=== PATIENT | male | born 1965 | race African-American/Black ===

== ENCOUNTER 2017-05-11 08:37 | Inpatient (IN) | payer OTHER, MEDICAID ==
[2017-05-11] VITALS (7 sets, daily range): BP systolic 105–118; BP diastolic 59–81
[~2017-05-11] VITALS: Ht 188 cm; Wt 68.5 kg
[2017-05-11] MEDS ORDERED: SODIUM CHLORIDE 0.9% 1,000 ML IV ONE (08:42)
[2017-05-11] MEDS ORDERED: METHYLPREDNISOLONE SOD SUCC 125 MG/2 ML VIAL IV STA (08:42)
[2017-05-11] MEDS ORDERED: IPRATROPIUM/ALBUTEROL 0.5-3(2.5)MG/3ML NEB HHN ONE (08:45)
[2017-05-11] MEDS ORDERED: ALBUTEROL (0.083%) 2.5MG/3ML NEB ONE (08:53)
[2017-05-11] MEDS ORDERED: IPRATROPIUM BROMIDE (0.02%) 0.5MG/2.5ML NEB ONE (08:53)
[2017-05-11 09:19] LABS: BASOPHILS % 0.9 % (0.0-2.0); HEMATOCRIT. 42.2 % (42.0-52.0); HEMOGLOBIN. 13.7 g/dL (14.0-18.0); MEAN CORPUSCULAR HEMOGLOBIN 29.9 pg (28.0-32.0); MEAN PLATELET VOLUME 7.1 fl (7.4-10.4); MONOCYTES % 5.6 % (2.0-8.0); NEUTROPHILS % 31.5 % (40.0-76.0); PLATELET 241 x1000/uL (130-400); RED BLOOD CELL COUNT 4.58 mill/uL (4.7-6.1); RED CELL DISTRIBUTION WIDTH 15.8 % (11.6-14.6)
[2017-05-11 09:25] LABS: INR 1.1; PARTIAL THROMBOPLASTIN TIME 26.9 sec (23.4-31.0)
[2017-05-11 09:32] LABS: CARBON DIOXIDE 26 mEq/L (21-32); CHLORIDE 106 mEq/L (98-107); TROPONIN I < 0.02 ng/mL (0.00-0.04)
[2017-05-11 10:49] LABS: BG BASE EXCESS -2.2 mmol/L (-2.0-2.0); BG BILEVEL POS AIRWAY PRESSURE 15/5; BG CARBOXYHEMOGLOBIN 0.6 % (0.5-1.5); BG DEOXYHEMOGLOBIN 0.3 % (0.0-5.0); BG HCO3 ACT 24.9 mmol/L (22.0-26.0); BG METHEMOGLOBIN 0.4 % (0.0-1.5); BG OXYGEN SATURATION 99.7 % (92.0-98.5); BG OXYHEMOGLOBIN 98.7 % (94.0-97.0); BG PCO2 52.1 mmHg (35.0-45.0); BG PH 7.297 (7.350-7.450); BG PO2 497.5 mmHg (75.0-100.0); BG SAMPLE SITE RIGHT BRACHIAL; BG TOTAL HEMOGLOBIN 13.8 g/dL (12.0-18.0); BG VENT MODE MASK - BIPAP; BG VENT RATE 20 set
[2017-05-11] MEDS: IPRATROPIUM/ALBUTEROL 0.5-3(2.5)MG/3ML NEB HHN SCH ×2 (15:50→21:58)
[2017-05-11] MEDS: DEXT 5%/0.45% NACL 1000ML 1,000 ML IV SCH (15:50)
[2017-05-11] MEDS: BUDESONIDE 0.5MG/2ML NEB HHN SCH (15:50)
[2017-05-11] MEDS: METHYLPREDNISOLONE SOD SUCC 40 MG/ML VIAL IV SCH (16:19)
[2017-05-11] MEDS: PANTOPRAZOLE SODIUM 40 MG/VIAL IV SCH (16:19)
[2017-05-11 16:35] LABS: BG BASE EXCESS -2.6 mmol/L (-2.0-2.0); BG CARBOXYHEMOGLOBIN 0.4 % (0.5-1.5); BG DEOXYHEMOGLOBIN 2.1 % (0.0-5.0); BG HCO3 ACT 22.8 mmol/L (22.0-26.0); BG METHEMOGLOBIN 0.4 % (0.0-1.5); BG OXYGEN SATURATION 97.9 % (92.0-98.5); BG OXYHEMOGLOBIN 97.1 % (94.0-97.0); BG PCO2 41.6 mmHg (35.0-45.0); BG PH 7.357 (7.350-7.450); BG SAMPLE SITE RIGHT BRACHIAL; BG TOTAL HEMOGLOBIN 13.8 g/dL (12.0-18.0); BG VENT MODE NASAL CANNULA
[2017-05-11] MEDS ORDERED: NA PHOS,M-B/NA PHOS,DI-BA ENEMA 118ML PR PRN (19:00)
[2017-05-11] MEDS ORDERED: ACETAMINOPHEN 325MG TABLET PO PRN (19:00)
[2017-05-11] MEDS ORDERED: GUAIFENESIN 200MG/10ML SUGAR FREE UDC PO PRN (19:00)
[2017-05-11] MEDS ORDERED: IPRATROPIUM/ALBUTEROL 0.5-3(2.5)MG/3ML NEB INH PRN (19:00)
[2017-05-11] MEDS ORDERED: ONDANSETRON HCL 4MG/2ML VIAL IV PRN (19:00)
[2017-05-11] MEDS ORDERED: CLONIDINE 0.1MG TABLET PO PRN (19:00)
[2017-05-11] MEDS ORDERED: DOCUSATE SODIUM 100MG CAPSULE PO PRN (19:00)
[2017-05-11] MEDS ORDERED: ACETAMINOPHEN 650MG/20.3ML UDC GT PRN (19:00)
[2017-05-11] MEDS ORDERED: MAGNESIUM/ALUMINUM HYDROXIDE/SIMETHICONE 30ML UDC PO PRN (19:00)
[2017-05-11] MEDS ORDERED: DIPHENHYDRAMINE 50MG/ML VIAL IV PRN (19:00)
[2017-05-11] MEDS ORDERED: ACETAMINOPHEN 650MG SUPP PR PRN (19:00)
[2017-05-11] MEDS ORDERED: LORAZEPAM 0.5MG TABLET PO PRN (19:00)
[2017-05-11] MEDS: ENOXAPARIN 40MG/0.4ML SYR SUBCUT SCH (20:00)
[2017-05-11 20:43] LABS: CLARITY URINE CLEAR (CLEAR); COLOR URINE YELLOW (YELLOW); GLUCOSE URINE 3+ (NEGATIVE); KETONES URINE NEGATIVE (NEGATIVE); LEUKOCYTE ESTERASE URINE NEGATIVE (NEGATIVE); NITRITE URINE NEGATIVE (NEGATIVE); OCCULT BLOOD URINE TRACE (NEGATIVE); PROTEIN URINE TRACE (NEGATIVE); SPECIFIC GRAVITY URINE 1.022 (1.005-1.030); UROBILINOGEN URINE 0.2 E.U./dL (0.2-1.0)
[2017-05-11] MEDS: SODIUM CHLORIDE 0.9% INJ 3ML FLUSH IVF SCH (20:49)
[2017-05-11 20:54] LABS: *AMPHETAMINES SCREEN URINE NEGATIVE (NEGATIVE); *BARBITURATES SCREEN URINE NEGATIVE (NEGATIVE); *BENZODIAZEPINES SCREEN URINE NEGATIVE (NEGATIVE); *COCAINE SCREEN URINE NEGATIVE (NEGATIVE); CANNABINOID URINE SCREEN NEGATIVE (NEGATIVE); METHADONE URINE SCREEN NEGATIVE (NEGATIVE); OPIATES URINE SCREEN NEGATIVE (NEGATIVE); PHENCYCLIDINE URINE SCREEN NEGATIVE (NEGATIVE)
[2017-05-12] VITALS (24 sets, daily range): BP systolic 54–115; BP diastolic 32–75
[2017-05-12] MEDS: IPRATROPIUM/ALBUTEROL 0.5-3(2.5)MG/3ML NEB HHN SCH ×6 (00:18→20:13)
[2017-05-12] MEDS: BUDESONIDE 0.5MG/2ML NEB HHN SCH ×3 (00:18→20:13)
[2017-05-12] MEDS: METHYLPREDNISOLONE SOD SUCC 40 MG/ML VIAL IV SCH ×3 (00:35→15:51)
[2017-05-12] MEDS: DEXT 5%/0.45% NACL 1000ML 1,000 ML IV SCH (01:45)
[2017-05-12] MEDS: SODIUM CHLORIDE 0.9% INJ 3ML FLUSH IVF SCH ×3 (05:15→21:34)
[2017-05-12 06:27] LABS: HEMATOCRIT. 37.4 % (42.0-52.0); HEMOGLOBIN. 12.4 g/dL (14.0-18.0); LYMPHOCYTES % 12.3 % (20.0-50.0); MEAN CORPUSCULAR HEMOGLOBIN 29.9 pg (28.0-32.0); MONOCYTES % 1.2 % (2.0-8.0); NEUTROPHILS % 86.5 % (40.0-76.0); PLATELET 214 x1000/uL (130-400); RED BLOOD CELL COUNT 4.15 mill/uL (4.7-6.1); RED CELL DISTRIBUTION WIDTH 15.2 % (11.6-14.6)
[2017-05-12 06:34] LABS: PARTIAL THROMBOPLASTIN TIME 26.8 sec (23.4-31.0); PROTHROMBIN TIME 10.5 sec (9.4-11.6)
[2017-05-12 07:09] LABS: CARBON DIOXIDE 23 mEq/L (21-32); CHLORIDE 103 mEq/L (98-107)
[2017-05-12 07:14] LABS: HDL CHOLESTEROL 65 mg/dL (40-59); LDL CHOLESTEROL 79 mg/dL (5-100)
[2017-05-12] MEDS: PANTOPRAZOLE SODIUM 40 MG/VIAL IV SCH (09:30)
[2017-05-12] MEDS ORDERED: MIDAZOLAM HCL 5 MG/5 ML VIAL ONE ×2 (13:51→14:21)
[2017-05-12] MEDS ORDERED: FENTANYL CITRATE/PF 50MCG/ML 2ML VIAL ONE (13:51)
[2017-05-12] MEDS ORDERED: FENTANYL CITRATE/PF 50MCG/ML 2ML VIAL IV ONE (14:39)
[2017-05-12] MEDS ORDERED: MIDAZOLAM HCL 5 MG/5 ML VIAL IV PRN (14:42)
[2017-05-12] MEDS ORDERED: SODIUM CHLORIDE 0.9% 10ML VIAL ONE (16:02)
[2017-05-12] MEDS ORDERED: SIMETHICONE 40 MG/0.6 ML 30ML ONE (16:02)
[2017-05-12] MEDS: ENOXAPARIN 40MG/0.4ML SYR SUBCUT SCH (20:31)
[2017-05-13] VITALS (15 sets, daily range): BP systolic 88–117; BP diastolic 52–67
[2017-05-13] MEDS: METHYLPREDNISOLONE SOD SUCC 40 MG/ML VIAL IV SCH ×2 (00:06→07:43)
[2017-05-13] MEDS: IPRATROPIUM/ALBUTEROL 0.5-3(2.5)MG/3ML NEB HHN SCH ×3 (00:17→08:29)
[2017-05-13] MEDS: DEXT 5%/0.45% NACL 1000ML 1,000 ML IV SCH (03:05)
[2017-05-13] MEDS: SODIUM CHLORIDE 0.9% INJ 3ML FLUSH IVF SCH (05:25)
[2017-05-13] MEDS: PANTOPRAZOLE SODIUM 40 MG/VIAL IV SCH (08:53)
[2017-05-15 09:07] LABS: % CD 3 POS. LYMPHOCYTES 60.5 % (57.5-86.2); % CD 4 POS. LYMPHOCYTES 7.3 % (30.8-58.5); CD4/CD8 RATIO 0.14 (0.92-3.72); HEMATOCRIT 39.9 % (37.5-51.0); HEMATOLOGY COMMENTS Note: (.); HEMOGLOBIN 13.1 g/dL (12.6-17.7); MEAN CORPUSCULAR HEMOGLOBIN 30.2 pg (26.6-33.0); MEAN CORPUSCULAR HGB CONC. 32.8 g/dL (31.5-35.7); MEAN CORPUSCULAR VOLUME 92 fL (79-97); PLATELETS 242 x10E3/uL (150-379); RBC 4.34 x10E6/uL (4.14-5.80); RED CELL DISTRIBUTION WIDTH 15.4 % (12.3-15.4); WBC 6.6 x10E3/uL (3.4-10.8)
== END 2017-05-13 11:45 | disposition left against medical advice (07) | DRG 133 ==
LOC: ER 09:04 → 5EST 11:05 → ENRESERV 11:30
PROVIDERS: ADMIT Family Medicine; ATTEND Family Medicine
PROC: 0DJ68ZZ Inspection of Stomach, Via Natural or Artificial Opening Endoscopic (ICD-10-PCS; principal; 2017-05-11)
PROC: 5A09357 Assistance with Respiratory Ventilation, Less than 24 Consecutive Hours, Continuous Positive Airway Pressure (ICD-10-PCS; 2017-05-11)
DX: J96.02 Acute respiratory failure with hypercapnia (principal); E87.2 Acidosis; K22.0 Achalasia of cardia; E11.65 Type 2 diabetes mellitus with hyperglycemia; J44.1 Chronic obstructive pulmonary disease with (acute) exacerbation; R63.4 Abnormal weight loss; D63.8 Anemia in other chronic diseases classified elsewhere; E78.5 Hyperlipidemia, unspecified; F17.210 Nicotine dependence, cigarettes, uncomplicated; Z53.21 Procedure and treatment not carried out due to patient leaving prior to being seen by health care provider; K21.9 Gastro-esophageal reflux disease without esophagitis; K22.8 Other specified diseases of esophagus; Z68.1 Body mass index [BMI] 19.9 or less, adult; Z85.9 Personal history of malignant neoplasm, unspecified; K22.2 Esophageal obstruction; Z21 Asymptomatic human immunodeficiency virus [HIV] infection status
CPT/HCPCS: 36415; 36600; 71010; 71250; 80053; 80061; 80305; 81001; 82375; 82805; 83605; 83880; 84484; 85025; 85610; 85730; 86359; 86360; 87040; 93005; 94640; 94660; 94664; 96361; 96374; 99285; A4216; C9113; J1650; J2250; J2920; J2930; J3010; J3490; J7030; J7611; J7620; J7626

== ENCOUNTER 2017-05-14 22:35 | Inpatient (IN) | payer OTHER, MEDICAID ==
[~2017-05-14] VITALS: Ht 188 cm; Wt 71.7 kg
[2017-05-14] MEDS ORDERED: METHYLPREDNISOLONE SOD SUCC 125 MG/2 ML VIAL IV STA (22:46)
[2017-05-14] MEDS ORDERED: LEVOFLOXACIN 750MG PREMIX 150 ML IV STA (22:46)
[2017-05-14] MEDS ORDERED: IPRATROPIUM BROMIDE (0.02%) 0.5MG/2.5ML NEB HHN STA (22:46)
[2017-05-14] MEDS ORDERED: ASPIRIN 81MG TABLET PO ONE (23:00)
[2017-05-14] MEDS ORDERED: NITROGLYCERIN OINT 1GM/INCH UDPKT TD ONE (23:00)
[2017-05-14] MEDS ORDERED: MAGNESIUM 2 G PREMIX 50 ML IV ONE (23:00)
[2017-05-14] MEDS: ALBUTEROL (0.083%) 2.5MG/3ML NEB HHN SCH ×2 (23:30→23:55)
[2017-05-14 23:41] LABS: BG BASE EXCESS -4.2 mmol/L (-2.0-2.0); BG BILEVEL POS AIRWAY PRESSURE 15/5; BG CARBOXYHEMOGLOBIN 1.7 % (0.5-1.5); BG DEOXYHEMOGLOBIN 0.8 % (0.0-5.0); BG FRACTION INSPIRED OXYGEN 60; BG HCO3 ACT 21.9 mmol/L (22.0-26.0); BG METHEMOGLOBIN 0.3 % (0.0-1.5); BG OXYGEN SATURATION 99.2 % (92.0-98.5); BG OXYHEMOGLOBIN 97.2 % (94.0-97.0); BG PCO2 43.8 mmHg (35.0-45.0); BG PH 7.316 (7.350-7.450); BG PO2 306.7 mmHg (75.0-100.0); BG SAMPLE SITE RIGHT RADIAL; BG VENT MODE MASK - BIPAP
[2017-05-14 23:49] LABS: BASOPHILS % 0.1 % (0.0-2.0); HEMATOCRIT. 35.9 % (42.0-52.0); HEMOGLOBIN. 11.7 g/dL (14.0-18.0); LYMPHOCYTES % 20.7 % (20.0-50.0); MEAN CORPUSCULAR HEMOGLOBIN 29.7 pg (28.0-32.0); MEAN CORPUSCULAR VOLUME 91.1 fL (80.0-94.0); MEAN PLATELET VOLUME 6.9 fl (7.4-10.4); MONOCYTES % 7.5 % (2.0-8.0); NEUTROPHILS % 71.7 % (40.0-76.0); PLATELET 184 x1000/uL (130-400); RED BLOOD CELL COUNT 3.95 mill/uL (4.7-6.1); RED CELL DISTRIBUTION WIDTH 15.7 % (11.6-14.6)
[2017-05-14 23:53] LABS: PROTHROMBIN TIME 10.7 sec (9.4-11.6)
[2017-05-15 00:02] LABS: CARBON DIOXIDE 30 mEq/L (21-32); CHLORIDE 105 mEq/L (98-107); ETHANOL BLOOD < 10 mg/dL; TROPONIN I < 0.02 ng/mL (0.00-0.04)
[2017-05-15] MEDS ORDERED: SODIUM CHLORIDE 0.9% 1000ML BAG (SEPSIS BOLUS) IV SCH (00:15)
[2017-05-15] MEDS: ALBUTEROL (0.083%) 2.5MG/3ML NEB HHN SCH (00:30)
[2017-05-15 05:26] LABS: CLARITY URINE CLEAR (CLEAR); COLOR URINE YELLOW (YELLOW); GLUCOSE URINE TRACE (NEGATIVE); KETONES URINE NEGATIVE (NEGATIVE); LEUKOCYTE ESTERASE URINE TRACE (NEGATIVE); NITRITE URINE NEGATIVE (NEGATIVE); OCCULT BLOOD URINE 1+ (NEGATIVE); PROTEIN URINE 1+ (NEGATIVE)
[2017-05-15 05:43] LABS: *AMPHETAMINES SCREEN URINE NEGATIVE (NEGATIVE); *BARBITURATES SCREEN URINE NEGATIVE (NEGATIVE); *BENZODIAZEPINES SCREEN URINE PRESUMTIVE POSITIVE (NEGATIVE); *COCAINE SCREEN URINE NEGATIVE (NEGATIVE); CANNABINOID URINE SCREEN NEGATIVE (NEGATIVE); METHADONE URINE SCREEN NEGATIVE (NEGATIVE); OPIATES URINE SCREEN NEGATIVE (NEGATIVE); PHENCYCLIDINE URINE SCREEN NEGATIVE (NEGATIVE)
[2017-05-15 06:06] VITALS: BP 110/70
[2017-05-15 07:57] VITALS: BP 99/53
[2017-05-15 08:14] VITALS: BP 110/70
[2017-05-15] MEDS ORDERED: ONDANSETRON HCL 4MG/2ML VIAL IV PRN (11:15)
[2017-05-15] MEDS ORDERED: CLONIDINE 0.1MG TABLET PO PRN (11:15)
[2017-05-15] MEDS ORDERED: DOCUSATE SODIUM 100MG CAPSULE PO PRN (11:15)
[2017-05-15] MEDS ORDERED: MAGNESIUM/ALUMINUM HYDROXIDE/SIMETHICONE 30ML UDC PO PRN (11:15)
[2017-05-15] MEDS ORDERED: IPRATROPIUM/ALBUTEROL 0.5-3(2.5)MG/3ML NEB INH PRN (11:15)
[2017-05-15] MEDS ORDERED: ACETAMINOPHEN 325MG TABLET PO PRN (11:15)
[2017-05-15 12:00] VITALS: BP 111/65
[2017-05-15] MEDS ORDERED: IPRATROPIUM/ALBUTEROL 0.5-3(2.5)MG/3ML NEB HHN PRN (12:45)
[2017-05-15] MEDS: METHYLPREDNISOLONE SOD SUCC 40 MG/ML VIAL IV SCH ×2 (12:48→22:42)
[2017-05-15] MEDS: ENOXAPARIN 40MG/0.4ML SYR SUBCUT SCH (12:48)
[2017-05-15] MEDS: IPRATROPIUM/ALBUTEROL 0.5-3(2.5)MG/3ML NEB HHN SCH ×2 (12:49→18:53)
[2017-05-15] MEDS ORDERED: DEXTROSE 50% WATER 50ML SYRINGE IV PRN (14:15)
[2017-05-15 15:06] LABS: HEPATITIS B SURFACE ANTIGEN NEGATIVE
[2017-05-15 15:22] LABS: CREATINE KINASE 284 IU/L (39-308); TROPONIN I < 0.02 ng/mL (0.00-0.04)
[2017-05-15 15:35] LABS: HEPATITIS B CORE AB IGM NEGATIVE
[2017-05-15 15:36] LABS: HEPATITIS A AB IGM NEGATIVE (NEGATIVE)
[2017-05-15 15:52] VITALS: BP 111/68
[2017-05-15] MEDS ORDERED: FAMO20TA8 PO (15:55)
[2017-05-15] MEDS ORDERED: RALT400T PO (15:55)
[2017-05-15] MEDS ORDERED: DARU75TA PO (15:55)
[2017-05-15] MEDS ORDERED: EMTR1TAB12 PO (15:55)
[2017-05-15] MEDS ORDERED: ETRA100T PO (15:55)
[2017-05-15] MEDS ORDERED: RITO100T PO (15:55)
[2017-05-15] MEDS ORDERED: ATOR10TA PO (15:55)
[2017-05-15] MEDS ORDERED: SULF1TAB48 PO (15:55)
[2017-05-15] MEDS ORDERED: SULFAMETHOXAZOLE/TRIMETHOPRIM 800/160MG TABLET PO SCH (16:45)
[2017-05-15] MEDS: BLOOD SUGAR DIAGNOSTIC STRIP TEST SCH ×2 (17:20→21:09)
[2017-05-15] MEDS: RALTEGRAVIR 400MG TABLET PO SCH (18:29)
[2017-05-15] MEDS: RITONAVIR 100 MG TABLET PO SCH (18:29)
[2017-05-15] MEDS: INSULIN LISPRO 100 UNITS/ML SUBCUT SCH ×2 (18:45→21:31)
[2017-05-15] MEDS: BUDESONIDE 0.5MG/2ML NEB HHN SCH (18:51)
[2017-05-15 20:51] VITALS: BP 120/73
[2017-05-15] MEDS: LEVOFLOXACIN 500MG PREMIX 100 ML IV SCH (22:40)
[2017-05-15] MEDS: GUAIFENESIN 600MG ER TABLET PO SCH (22:41)
[2017-05-15] MEDS: DARUNAVIR ETHANOLATE 800 MG TABLET PO SCH (22:42)
[2017-05-15] MEDS: EMTRICITABINE 200MG CAPSULE PO SCH (22:51)
[2017-05-16] VITALS (35 sets, daily range): BP systolic 101–164; BP diastolic 56–111
[2017-05-16 00:35] LABS: CREATINE KINASE 179 IU/L (39-308); CREATINE KINASE MB FRACTION 1.3 ng/mL (0.5-3.6); TROPONIN I < 0.02 ng/mL (0.00-0.04)
[2017-05-16] MEDS: IPRATROPIUM/ALBUTEROL 0.5-3(2.5)MG/3ML NEB HHN SCH ×6 (04:21→20:28)
[2017-05-16] MEDS: BLOOD SUGAR DIAGNOSTIC STRIP TEST SCH ×3 (06:29→17:26)
[2017-05-16] MEDS: METHYLPREDNISOLONE SOD SUCC 40 MG/ML VIAL IV SCH ×3 (06:32→22:08)
[2017-05-16 06:36] LABS: HEMATOCRIT. 34.2 % (42.0-52.0); HEMOGLOBIN. 11.5 g/dL (14.0-18.0); MEAN CORPUSCULAR HEMOGLOBIN 30.2 pg (28.0-32.0); MEAN CORPUSCULAR VOLUME 90.1 fL (80.0-94.0); MEAN PLATELET VOLUME 7.1 fl (7.4-10.4); PLATELET 186 x1000/uL (130-400)
[2017-05-16 06:58] LABS: CARBON DIOXIDE 25 mEq/L (21-32); CHLORIDE 103 mEq/L (98-107)
[2017-05-16 07:08] LABS: HDL CHOLESTEROL 70 mg/dL (40-59); LDL CHOLESTEROL 91 mg/dL (5-100)
[2017-05-16] MEDS: INSULIN LISPRO 100 UNITS/ML SUBCUT SCH ×3 (08:44→17:26)
[2017-05-16] MEDS: GUAIFENESIN 600MG ER TABLET PO SCH ×2 (08:46→20:07)
[2017-05-16] MEDS: ENOXAPARIN 40MG/0.4ML SYR SUBCUT SCH (08:46)
[2017-05-16] MEDS: EMTRICITABINE 200MG CAPSULE PO SCH (08:47)
[2017-05-16] MEDS: RITONAVIR 100 MG TABLET PO SCH (08:47)
[2017-05-16] MEDS: DARUNAVIR ETHANOLATE 800 MG TABLET PO SCH (08:47)
[2017-05-16] MEDS: RALTEGRAVIR 400MG TABLET PO SCH (08:48)
[2017-05-16] MEDS ORDERED: EMTRICITABINE 200MG CAPSULE PO SCH (09:00)
[2017-05-16] MEDS ORDERED: DARUNAVIR ETHANOLATE 800 MG TABLET PO SCH (09:00)
[2017-05-16] MEDS: BUDESONIDE 0.5MG/2ML NEB HHN SCH ×3 (09:19→20:27)
[2017-05-16] MEDS ORDERED: LORAZEPAM 2MG/ML CPJ IV ONE (09:45)
[2017-05-16] MEDS ORDERED: LORAZEPAM 2MG/ML CPJ IV SCH ×2 (09:45→11:15)
[2017-05-16] MEDS ORDERED: LORAZEPAM 2MG/ML CPJ ONE (09:50)
[2017-05-16] MEDS: PROPOFOL 10MG/ML 100ML 100 ML IV PRN ×3 (10:16→19:11)
[2017-05-16] MEDS ORDERED: LORAZEPAM 2MG/ML CPJ IV PRN (11:15)
[2017-05-16 11:19] LABS: BG BASE EXCESS -1.6 mmol/L (-2.0-2.0); BG CARBOXYHEMOGLOBIN 0.4 % (0.5-1.5); BG DEOXYHEMOGLOBIN 0.2 % (0.0-5.0); BG FRACTION INSPIRED OXYGEN 100; BG HCO3 ACT 25.2 mmol/L (22.0-26.0); BG METHEMOGLOBIN 0.4 % (0.0-1.5); BG OXYGEN SATURATION 99.8 % (92.0-98.5); BG PCO2 51.2 mmHg (35.0-45.0); BG SAMPLE SITE LEFT RADIAL; BG TIDAL VOLUME(mL) 550 mL; BG TOTAL HEMOGLOBIN 13.3 g/dL (12.0-18.0); BG VENT MODE VENT - A/C; BG VENT RATE 14 set
[2017-05-16] MEDS: FENTANYL CITRATE/PF 500 MCG in SODIUM CHLORIDE 0.9% 40 ML IV PRN (11:41)
[2017-05-16] MEDS: PANTOPRAZOLE SODIUM 40 MG/VIAL IV SCH (12:13)
[2017-05-16] MEDS: PIPERACILLIN/TAZ 3.375G PREMIX 50 ML IV SCH ×2 (13:53→17:25)
[2017-05-16] MEDS ORDERED: SUCCINYLCHOLINE CHLORIDE 200MG/10ML VIAL IV ONE (14:53)
[2017-05-16] MEDS ORDERED: ETOMIDATE 2MG/ML 10ML VIAL IV ONE (14:53)
[2017-05-16] MEDS: LEVOFLOXACIN 500MG PREMIX 100 ML IV SCH (20:14)
[2017-05-17] VITALS (73 sets, daily range): BP systolic 94–134; BP diastolic 51–85
[2017-05-17] MEDS: BLOOD SUGAR DIAGNOSTIC STRIP TEST SCH ×4 (00:16→17:49)
[2017-05-17] MEDS: IPRATROPIUM/ALBUTEROL 0.5-3(2.5)MG/3ML NEB HHN SCH ×7 (00:19→23:26)
[2017-05-17] MEDS: PIPERACILLIN/TAZ 3.375G PREMIX 50 ML IV SCH ×4 (00:20→18:02)
[2017-05-17] MEDS: PROPOFOL 10MG/ML 100ML 100 ML IV PRN ×5 (01:18→19:48)
[2017-05-17] MEDS: METHYLPREDNISOLONE SOD SUCC 40 MG/ML VIAL IV SCH ×2 (05:05→20:37)
[2017-05-17] MEDS: INSULIN LISPRO 100 UNITS/ML SUBCUT SCH ×4 (05:20→17:49)
[2017-05-17 06:10] LABS: BASOPHILS % 0.1 % (0.0-2.0); HEMATOCRIT. 34.7 % (42.0-52.0); HEMOGLOBIN. 11.4 g/dL (14.0-18.0); LYMPHOCYTES % 8.3 % (20.0-50.0); MEAN CORPUSCULAR HEMOGLOBIN 29.9 pg (28.0-32.0); MEAN CORPUSCULAR VOLUME 90.7 fL (80.0-94.0); MEAN PLATELET VOLUME 7.1 fl (7.4-10.4); MONOCYTES % 2.9 % (2.0-8.0); NEUTROPHILS % 88.7 % (40.0-76.0); PLATELET 177 x1000/uL (130-400); RED BLOOD CELL COUNT 3.83 mill/uL (4.7-6.1)
[2017-05-17 06:40] LABS: CARBON DIOXIDE 27 mEq/L (21-32); CHLORIDE 103 mEq/L (98-107)
[2017-05-17 07:15] LABS: BG BASE EXCESS 1.7 mmol/L (-2.0-2.0); BG CARBOXYHEMOGLOBIN 0.2 % (0.5-1.5); BG DEOXYHEMOGLOBIN 0.6 % (0.0-5.0); BG HCO3 ACT 26.7 mmol/L (22.0-26.0); BG METHEMOGLOBIN 0.3 % (0.0-1.5); BG OXYGEN SATURATION 99.4 % (92.0-98.5); BG OXYHEMOGLOBIN 98.9 % (94.0-97.0); BG PCO2 43.6 mmHg (35.0-45.0); BG PH 7.405 (7.350-7.450); BG PO2 275.2 mmHg (75.0-100.0); BG SAMPLE SITE RIGHT RADIAL; BG TIDAL VOLUME(mL) 500 mL; BG TOTAL HEMOGLOBIN 12.9 g/dL (12.0-18.0); BG VENT MODE VENT - A/C; BG VENT RATE 14 set
[2017-05-17] MEDS: BUDESONIDE 0.5MG/2ML NEB HHN SCH ×2 (07:55→20:01)
[2017-05-17] MEDS: EMTRICITABINE 200MG CAPSULE PO SCH (08:47)
[2017-05-17] MEDS: RALTEGRAVIR 400MG TABLET PO SCH (08:48)
[2017-05-17] MEDS: DARUNAVIR ETHANOLATE 800 MG TABLET PO SCH (08:48)
[2017-05-17] MEDS: GUAIFENESIN 600MG ER TABLET PO SCH (08:48)
[2017-05-17] MEDS: PANTOPRAZOLE SODIUM 40 MG/VIAL IV SCH (08:49)
[2017-05-17] MEDS: FENTANYL CITRATE/PF 500 MCG in SODIUM CHLORIDE 0.9% 40 ML IV PRN (20:04)
[2017-05-17] MEDS: LEVOFLOXACIN 500MG PREMIX 100 ML IV SCH (20:37)
[2017-05-17] MEDS: TOTAL PARENTERAL NUTRITION 1,000 ML IV SCH (20:56)
[2017-05-17 22:26] LABS: TOTAL IRON BINDING CAPACITY 242 ug/dL (250-450)
[2017-05-17 22:45] LABS: FERRITIN 110 ng/mL (22-322)
[2017-05-17 22:58] LABS: VITAMIN B12 SERUM 790 pg/mL (211-911)
[2017-05-18] VITALS (88 sets, daily range): BP systolic 85–126; BP diastolic 50–79
[2017-05-18] MEDS: PIPERACILLIN/TAZ 3.375G PREMIX 50 ML IV SCH ×5 (00:04→23:47)
[2017-05-18] MEDS: INSULIN LISPRO 100 UNITS/ML SUBCUT SCH ×5 (00:05→23:51)
[2017-05-18] MEDS: BLOOD SUGAR DIAGNOSTIC STRIP TEST SCH ×5 (00:05→23:36)
[2017-05-18] MEDS: PROPOFOL 10MG/ML 100ML 100 ML IV PRN ×2 (00:28→04:40)
[2017-05-18] MEDS: IPRATROPIUM/ALBUTEROL 0.5-3(2.5)MG/3ML NEB HHN SCH ×5 (03:12→20:11)
[2017-05-18] MEDS: BUDESONIDE 0.5MG/2ML NEB HHN SCH ×2 (08:17→20:11)
[2017-05-18] MEDS: METHYLPREDNISOLONE SOD SUCC 40 MG/ML VIAL IV SCH ×2 (08:21→20:10)
[2017-05-18] MEDS: PANTOPRAZOLE SODIUM 40 MG/VIAL IV SCH (08:21)
[2017-05-18] MEDS: RALTEGRAVIR 400MG TABLET PO SCH (08:29)
[2017-05-18] MEDS: DARUNAVIR ETHANOLATE 800 MG TABLET PO SCH (08:29)
[2017-05-18] MEDS: EMTRICITABINE 200MG CAPSULE PO SCH (09:00)
[2017-05-18] MEDS: LORAZEPAM 2MG/ML CPJ IV PRN ×2 (09:25→15:24)
[2017-05-18] MEDS: MIDAZOLAM HCL 50 MG in DEXTROSE 5% WATER 40 ML IV PRN (11:31)
[2017-05-18] MEDS: TOTAL PARENTERAL NUTRITION 1,000 ML IV SCH ×2 (11:35→21:26)
[2017-05-18 12:21] LABS: BASOPHILS % 0.2 % (0.0-2.0); HEMATOCRIT. 35.1 % (42.0-52.0); HEMOGLOBIN. 11.6 g/dL (14.0-18.0); LYMPHOCYTES % 8.2 % (20.0-50.0); MEAN CORPUSCULAR HEMOGLOBIN 29.6 pg (28.0-32.0); MEAN CORPUSCULAR VOLUME 89.2 fL (80.0-94.0); MEAN PLATELET VOLUME 6.9 fl (7.4-10.4); MONOCYTES % 6.2 % (2.0-8.0); NEUTROPHILS % 85.4 % (40.0-76.0); PLATELET 163 x1000/uL (130-400); RED BLOOD CELL COUNT 3.93 mill/uL (4.7-6.1); RED CELL DISTRIBUTION WIDTH 14.9 % (11.6-14.6)
[2017-05-18 12:46] LABS: CARBON DIOXIDE 33 mEq/L (21-32); CHLORIDE 106 mEq/L (98-107)
[2017-05-18] MEDS: FENTANYL CITRATE/PF 500 MCG in SODIUM CHLORIDE 0.9% 40 ML IV PRN ×2 (12:52→18:38)
[2017-05-18] MEDS ORDERED: FAT EMULSIONS 500 ML IV NR (13:30)
[2017-05-18] MEDS: LEVOFLOXACIN 500MG PREMIX 100 ML IV SCH (20:11)
[2017-05-19] VITALS (63 sets, daily range): BP systolic 72–196; BP diastolic 44–130
[2017-05-19] MEDS: IPRATROPIUM/ALBUTEROL 0.5-3(2.5)MG/3ML NEB HHN SCH ×6 (00:16→20:12)
[2017-05-19] MEDS: MIDAZOLAM HCL 50 MG in DEXTROSE 5% WATER 40 ML IV PRN ×4 (01:05→22:33)
[2017-05-19] MEDS: FENTANYL CITRATE/PF 500 MCG in SODIUM CHLORIDE 0.9% 40 ML IV PRN ×5 (01:05→23:05)
[2017-05-19] MEDS: PIPERACILLIN/TAZ 3.375G PREMIX 50 ML IV SCH ×4 (05:12→23:51)
[2017-05-19] MEDS: BLOOD SUGAR DIAGNOSTIC STRIP TEST SCH ×4 (05:16→23:49)
[2017-05-19] MEDS: INSULIN LISPRO 100 UNITS/ML SUBCUT SCH ×4 (05:19→23:49)
[2017-05-19 05:21] LABS: BASOPHILS % 0.1 % (0.0-2.0); HEMATOCRIT. 34.5 % (42.0-52.0); HEMOGLOBIN. 11.4 g/dL (14.0-18.0); LYMPHOCYTES % 7.1 % (20.0-50.0); MEAN CORPUSCULAR HEMOGLOBIN 29.8 pg (28.0-32.0); MEAN CORPUSCULAR VOLUME 90.4 fL (80.0-94.0); MEAN PLATELET VOLUME 7.1 fl (7.4-10.4); MONOCYTES % 7.1 % (2.0-8.0); NEUTROPHILS % 85.7 % (40.0-76.0); PLATELET 135 x1000/uL (130-400); RED BLOOD CELL COUNT 3.82 mill/uL (4.7-6.1); RED CELL DISTRIBUTION WIDTH 14.8 % (11.6-14.6)
[2017-05-19 05:37] LABS: CARBON DIOXIDE 32 mEq/L (21-32); CHLORIDE 105 mEq/L (98-107); PHOSPHORUS 2.5 mg/dL (2.5-4.9)
[2017-05-19] MEDS: BUDESONIDE 0.5MG/2ML NEB HHN SCH (08:30)
[2017-05-19] MEDS: EMTRICITABINE 200MG CAPSULE PO SCH (09:00)
[2017-05-19] MEDS ORDERED: PANTOPRAZOLE SODIUM 40 MG/VIAL IV SCH (09:00)
[2017-05-19] MEDS: DARUNAVIR ETHANOLATE 800 MG TABLET PO SCH (09:00)
[2017-05-19] MEDS: RALTEGRAVIR 400MG TABLET PO SCH (09:00)
[2017-05-19] MEDS: METHYLPREDNISOLONE SOD SUCC 40 MG/ML VIAL IV SCH (09:14)
[2017-05-19] MEDS: PANTOPRAZOLE SODIUM 40 MG/VIAL IV SCH (09:14)
[2017-05-19 10:19] LABS: BG BASE EXCESS 5.1 mmol/L (-2.0-2.0); BG CARBOXYHEMOGLOBIN 0.3 % (0.5-1.5); BG DEOXYHEMOGLOBIN 0.9 % (0.0-5.0); BG FRACTION INSPIRED OXYGEN 40; BG METHEMOGLOBIN 0.4 % (0.0-1.5); BG OXYGEN SATURATION 99.1 % (92.0-98.5); BG OXYHEMOGLOBIN 98.4 % (94.0-97.0); BG PCO2 51.8 mmHg (35.0-45.0); BG PH 7.395 (7.350-7.450); BG PO2 177.6 mmHg (75.0-100.0); BG SAMPLE SITE LEFT RADIAL; BG TIDAL VOLUME(mL) 500 mL; BG VENT MODE VENT - A/C; BG VENT RATE 14 set
[2017-05-19] MEDS: TOTAL PARENTERAL NUTRITION 1,000 ML IV SCH (12:30)
[2017-05-19] MEDS ORDERED: NOREPINEPHRINE 8 MG in DEXT 5% WATER 242 ML IV PRN (16:45)
[2017-05-19] MEDS: LEVOFLOXACIN 500MG PREMIX 100 ML IV SCH (20:58)
[2017-05-20] VITALS (93 sets, daily range): BP systolic 83–136; BP diastolic 47–85
[2017-05-20] MEDS: IPRATROPIUM/ALBUTEROL 0.5-3(2.5)MG/3ML NEB HHN SCH ×7 (00:04→23:30)
[2017-05-20] MEDS: TOTAL PARENTERAL NUTRITION 1,000 ML IV SCH ×2 (01:59→16:55)
[2017-05-20] MEDS: FENTANYL CITRATE/PF 1,000 MCG in SODIUM CHLORIDE 0.9% 80 ML IV PRN ×2 (05:10→14:51)
[2017-05-20] MEDS: MIDAZOLAM HCL 100 MG in DEXT 5% WATER 80 ML IV PRN ×2 (05:11→18:57)
[2017-05-20] MEDS: PIPERACILLIN/TAZ 3.375G PREMIX 50 ML IV SCH ×3 (05:19→18:41)
[2017-05-20] MEDS: INSULIN LISPRO 100 UNITS/ML SUBCUT SCH ×3 (05:41→18:41)
[2017-05-20] MEDS: BLOOD SUGAR DIAGNOSTIC STRIP TEST SCH ×3 (06:21→18:00)
[2017-05-20 06:50] LABS: BASOPHILS % 0.1 % (0.0-2.0); EOSINOPHILS % 0.1 % (0.0-5.0); HEMATOCRIT. 36.1 % (42.0-52.0); HEMOGLOBIN. 11.9 g/dL (14.0-18.0); LYMPHOCYTES % 26.4 % (20.0-50.0); MEAN CORPUSCULAR VOLUME 90.9 fL (80.0-94.0); MEAN PLATELET VOLUME 6.5 fl (7.4-10.4); MONOCYTES % 10.1 % (2.0-8.0); NEUTROPHILS % 63.3 % (40.0-76.0); PLATELET 144 x1000/uL (130-400); RED BLOOD CELL COUNT 3.97 mill/uL (4.7-6.1); RED CELL DISTRIBUTION WIDTH 15.1 % (11.6-14.6)
[2017-05-20 07:10] LABS: CARBON DIOXIDE 32 mEq/L (21-32); CHLORIDE 105 mEq/L (98-107)
[2017-05-20 07:13] LABS: BG BASE EXCESS 5.1 mmol/L (-2.0-2.0); BG CARBOXYHEMOGLOBIN 0.2 % (0.5-1.5); BG DEOXYHEMOGLOBIN 1.2 % (0.0-5.0); BG HCO3 ACT 32.1 mmol/L (22.0-26.0); BG METHEMOGLOBIN 0.2 % (0.0-1.5); BG OXYGEN SATURATION 98.8 % (92.0-98.5); BG OXYHEMOGLOBIN 98.4 % (94.0-97.0); BG PCO2 58.2 mmHg (35.0-45.0); BG PH 7.359 (7.350-7.450); BG PO2 146.3 mmHg (75.0-100.0); BG SAMPLE SITE RIGHT BRACHIAL; BG TIDAL VOLUME(mL) 500 mL; BG TOTAL HEMOGLOBIN 12.8 g/dL (12.0-18.0); BG VENT MODE VENT - A/C; BG VENT RATE 14 set
[2017-05-20] MEDS: PANTOPRAZOLE SODIUM 40 MG/VIAL IV SCH (08:48)
[2017-05-20] MEDS: EMTRICITABINE 200MG CAPSULE PO SCH (08:49)
[2017-05-20] MEDS: RALTEGRAVIR 400MG TABLET PO SCH (08:49)
[2017-05-20] MEDS: DARUNAVIR ETHANOLATE 800 MG TABLET PO SCH (08:49)
[2017-05-20] MEDS ORDERED: METHYLPREDNISOLONE SOD SUCC 40 MG/ML VIAL IV SCH (09:00)
[2017-05-20] MEDS ORDERED: POTASSIUM CHLORIDE 20MEQ TABLET SR PO NR (09:45)
[2017-05-20] MEDS ORDERED: KCL 20MEQ/100ML PREMIX 100 ML IV SCH (11:00)
[2017-05-20] MEDS ORDERED: ETOMIDATE 2MG/ML 10ML VIAL IV ONE (11:42)
[2017-05-20] MEDS: ENOXAPARIN 40MG/0.4ML SYR SUBCUT SCH (14:52)
[2017-05-20] MEDS: LEVOFLOXACIN 500MG PREMIX 100 ML IV SCH (20:43)
[2017-05-21] VITALS (49 sets, daily range): BP systolic 85–154; BP diastolic 53–100
[2017-05-21] MEDS: PIPERACILLIN/TAZ 3.375G PREMIX 50 ML IV SCH ×4 (00:27→18:04)
[2017-05-21] MEDS: BLOOD SUGAR DIAGNOSTIC STRIP TEST SCH ×4 (00:27→18:18)
[2017-05-21] MEDS: INSULIN LISPRO 100 UNITS/ML SUBCUT SCH ×4 (00:36→18:05)
[2017-05-21] MEDS: FENTANYL CITRATE/PF 1,000 MCG in SODIUM CHLORIDE 0.9% 80 ML IV PRN ×2 (03:31→16:33)
[2017-05-21] MEDS: IPRATROPIUM/ALBUTEROL 0.5-3(2.5)MG/3ML NEB HHN SCH ×4 (03:38→15:13)
[2017-05-21] MEDS: TOTAL PARENTERAL NUTRITION 1,000 ML IV SCH (05:30)
[2017-05-21 06:09] LABS: BASOPHILS % 0.1 % (0.0-2.0); EOSINOPHILS % 0.2 % (0.0-5.0); HEMOGLOBIN. 11.8 g/dL (14.0-18.0); LYMPHOCYTES % 30.6 % (20.0-50.0); MEAN CORPUSCULAR HEMOGLOBIN 29.7 pg (28.0-32.0); MEAN CORPUSCULAR VOLUME 90.4 fL (80.0-94.0); MEAN PLATELET VOLUME 6.8 fl (7.4-10.4); MONOCYTES % 10.2 % (2.0-8.0); NEUTROPHILS % 58.9 % (40.0-76.0); PLATELET 124 x1000/uL (130-400); RED BLOOD CELL COUNT 3.98 mill/uL (4.7-6.1); RED CELL DISTRIBUTION WIDTH 14.5 % (11.6-14.6)
[2017-05-21 06:34] LABS: CHLORIDE 101 mEq/L (98-107)
[2017-05-21 06:50] LABS: CARBON DIOXIDE 32 mEq/L (21-32)
[2017-05-21] MEDS: LORAZEPAM 2MG/ML CPJ IV PRN ×2 (07:54→18:04)
[2017-05-21] MEDS: EMTRICITABINE 200MG CAPSULE PO SCH (08:12)
[2017-05-21] MEDS: RALTEGRAVIR 400MG TABLET PO SCH (08:12)
[2017-05-21] MEDS: DARUNAVIR ETHANOLATE 800 MG TABLET PO SCH (08:12)
[2017-05-21] MEDS: MIDAZOLAM HCL 100 MG in DEXT 5% WATER 80 ML IV PRN (08:31)
[2017-05-21] MEDS: ENOXAPARIN 40MG/0.4ML SYR SUBCUT SCH (08:31)
[2017-05-21] MEDS: PANTOPRAZOLE SODIUM 40 MG/VIAL IV SCH (08:31)
[2017-05-21] MEDS ORDERED: METHYLPREDNISOLONE SOD SUCC 40 MG/ML VIAL IV SCH (09:00)
[2017-05-21] MEDS ORDERED: FAT EMULSIONS 500 ML IV SCH (21:00)
== END 2017-05-21 19:30 | disposition short-term general hospital (02) | DRG 890 ==
LOC: ER 22:35 → 6WST 05-15 00:21 → EDBEDREQSVC 05-15 02:04 → ENRESERV 05-15 03:03 → CVICU 05-16 10:02
PROVIDERS: ADMIT Internal Medicine; ATTEND Internal Medicine
PROC: 5A1955Z Respiratory Ventilation, Greater than 96 Consecutive Hours (ICD-10-PCS; principal; 2017-05-16)
PROC: 0BH17EZ Insertion of Endotracheal Airway into Trachea, Via Natural or Artificial Opening (ICD-10-PCS; 2017-05-16)
PROC: 02HV33Z Insertion of Infusion Device into Superior Vena Cava, Percutaneous Approach (ICD-10-PCS; 2017-05-17)
PROC: 5A09357 Assistance with Respiratory Ventilation, Less than 24 Consecutive Hours, Continuous Positive Airway Pressure (ICD-10-PCS; 2017-05-17)
PROC: B548ZZA Ultrasonography of Superior Vena Cava, Guidance (ICD-10-PCS; 2017-05-17)
DX: B20 Human immunodeficiency virus [HIV] disease (principal); J96.00 Acute respiratory failure, unspecified whether with hypoxia or hypercapnia; A41.9 Sepsis, unspecified organism; J69.0 Pneumonitis due to inhalation of food and vomit; J44.1 Chronic obstructive pulmonary disease with (acute) exacerbation; K22.0 Achalasia of cardia; I95.9 Hypotension, unspecified; D63.8 Anemia in other chronic diseases classified elsewhere; E11.9 Type 2 diabetes mellitus without complications; E78.5 Hyperlipidemia, unspecified; F17.210 Nicotine dependence, cigarettes, uncomplicated; K21.9 Gastro-esophageal reflux disease without esophagitis; K22.8 Other specified diseases of esophagus; R22.2 Localized swelling, mass and lump, trunk
CPT/HCPCS: 36415; 36569; 36600; 70450; 71010; 71035; 74176; 76705; 76937; 80048; 80053; 80061; 80076; 80305; 81001; 82375; 82550; 82553; 82607; 82728; 82805; 82962; 83540; 83550; 83605; 83735; 83880; 84100; 84443; 84478; 84484; 85025; 85610; 86705; 86709; 86803; 87040; 87070; 87086; 87340; 93005; 93970; 94002; 94003; 94640; 94660; 94664; 96365; 96366; 96367; 96375; 99291; C1725; C9113; G0482; J0330; J1650; J1815; J1956; J2060; J2250; J2543; J2704; J2920; J2930; J3010; J3475; J3480; J3490; J7030; J7040; J7050; J7060; J7611; J7620; J7626; A4315